=== PATIENT | female | born 1990 | race Caucasian/White ===

== ENCOUNTER 2020-12-07 22:29 | Emergency (ER) | payer MEDICAID ==
[~2020-12-07] VITALS: Ht 162.6 cm; Wt 143.2 kg
[~2020-12-07 22:29] MED LIST: BIRTH CONTROL; BIRTH CONTROL PILLS; DESOGEN 0.15 MG1 TAB PO; DOXYCYCLINE HY100 M5 PO; FLAGYL500 MG PO; GLIPIZIDE5 MG PO; GLYBURIDE5 MG PO; IRON PILLS; LORTAB 5/500 501 TAB PO; MVI; NO HOME MEDICATIONS; NORCO 325 MG-51 TAB PO; NORCO 325 MG-7.1 TAB PO; OMEPRAZOLE D/R20 MG PO; ORTHO TRI-CYCLE1 TAB PO; PHENERGAN 25 TA25 MG PO; PRENATAL1 TA1 PO; PROMETHAZINE HC25 M2 PO; SUDAFED 12 HOU120 MG PO
[2020-12-08 01:49] LABS: BASO % 0.2 % (0.0-2.0); EOS # 0.1 (0.0-0.7); EOS % 1.5 % (0-4.0); GRAN # 4.7 (1.4-6.5); GRAN % 52.4 % (42.2-75.2); HEMATOCRIT 46.1 % (37.0-47.0); HEMOGLOBIN 15.2 g/dl (12.5-16.0); LYMPH # 3.6 (1.2-3.4); LYMPH % 40.1 % (20.0-51.0); MEAN CELL VOLUME 86 fl (80.0-100.0); MEAN CORPUSCULAR HEMOGLOBIN 28 pg (27.0-31.0); MEAN CORPUSCULAR HGB CONC 33 g/dl (33.0-37.0); MEAN PLATELET VOLUME 10.3 fl (7.4-10.4); MONO # 0.5 (0.1-0.6); MONO % 5.5 % (1.7-9.3); PLATELET COUNT 250 K/mm3 (130-400); RED BLOOD COUNT 5.36 M/mm3 (4.10-5.30); REDCELL DISTRIBUTION WIDTH-CV 13.7 % (11.5-14.5)
[2020-12-08 02:00] LABS: ALBUMIN 4.5 gm/dL (3.5-5.0); BILIRUBIN,TOTAL 0.6 mg/dL (0.0-1.0); CALCIUM 9.4 mg/dL (8.4-10.2); CREATININE, serum 0.51 (0.52-1.25); POTASSIUM 3.5 mmol/L (3.4-5.0); TOTAL PROTEIN 8.2 gm/dL (6.4-8.2)
[2020-12-08] MEDS ORDERED: PERCOCET 325 MG1 TA2 PO ×2 (04:24)
[2020-12-08] MEDS ORDERED: ZOFRAN ODT4 MG PO ×2 (04:24)
[2020-12-08 04:44] VITALS: BP 127/93; PULSE 86; TEMP 98.4
== END 2020-12-08 04:44 | disposition home or self-care (01) ==
LOC: COL.ER 22:29
PROVIDERS: Personal Emergency Response Attendant
DX: R16.2 Hepatomegaly with splenomegaly, not elsewhere classified (principal); R91.1 Solitary pulmonary nodule; Z90.49 Acquired absence of other specified parts of digestive tract; Z88.0 Allergy status to penicillin; Z88.1 Allergy status to other antibiotic agents
CPT/HCPCS: J2270; J2405; J7030; Q9967

== ENCOUNTER → 2021-05-11 | Outpatient (CLI) | payer MEDICAID ==
[~2021-05-11] MED LIST changes: +PERCOCET 325 MG1 TA2 PO; +ZOFRAN ODT4 MG PO
== END ==
LOC: COL.RAD 07:16
DX: K29.70 Gastritis, unspecified, without bleeding (principal)
CPT/HCPCS: A9541